=== PATIENT | male | born 1965 | race African-American/Black ===

== ENCOUNTER 2016-08-20 14:38 | Emergency (ER) | payer MEDICAID ==
[~2016-08-20] VITALS: Ht 172.7 cm; Wt 70.0 kg
[2016-08-20] MEDS ORDERED: ONDANSETRON HCL 4MG/2ML VIAL IV STA (20:04)
[2016-08-20] MEDS ORDERED: MORPHINE SULFATE 4 MG/ML CPJ (NOT FOR IM USE) IV STA (20:04)
[2016-08-20 20:14] LABS: BASOPHILS % 0.5 % (0.0-2.0); HEMATOCRIT. 36.7 % (42.0-52.0); HEMOGLOBIN. 12.7 g/dL (14.0-18.0); LYMPHOCYTES % 25.5 % (20.0-50.0); MEAN CORPUSCULAR HEMOGLOBIN 29.6 pg (28.0-32.0); MEAN CORPUSCULAR HGB CONC 34.6 g/dL (31.0-37.0); MEAN CORPUSCULAR VOLUME 85.4 fL (80.0-94.0); MEAN PLATELET VOLUME 6.8 fl (7.4-10.4); MONOCYTES % 10.1 % (2.0-8.0); NEUTROPHILS % 62.9 % (40.0-76.0); PLATELET 236 x1000/uL (130-400); RED BLOOD CELL COUNT 4.29 mill/uL (4.7-6.1); RED CELL DISTRIBUTION WIDTH 12.9 % (11.6-14.6); WHITE BLOOD COUNT 6.8 x1000/uL (4.5-11.0)
[2016-08-20 20:20] LABS: CHLORIDE 105 mEq/L (98-107); INDEX HEMOLYSI 1 (1-3); INDEX ICTERIC 1 (1-4); INDEX LIPEMIC 1 (1-3)
[2016-08-20 20:31] LABS: ALANINE AMINOTRANSFERASE 21 IU/L (13-61); ALBUMIN 3.5 g/dL (3.4-5.0); ANION GAP 12; CALCIUM 8.8 mg/dL (8.5-10.1); CARBON DIOXIDE 29 mEq/L (21-32); LIPASE 101 IU/L (73-393); UREA NITROGEN BLOOD 11 mg/dL (7-21); eGFR > 60 mL/min (>60)
[2016-08-20] MEDS ORDERED: SODIUM CHLORIDE 0.9% 1,000 ML IV ONE (21:02)
[2016-08-20] MEDS ORDERED: KETOROLAC 30MG/ML VIAL IV ONE (23:15)
[2016-08-20] MEDS ORDERED: ONDANSETRON HCL 4MG/2ML VIAL IV ONE (23:15)
[2016-08-20 23:26] LABS: CLARITY URINE CLOUDY (CLEAR); COLOR URINE YELLOW (YELLOW); GLUCOSE URINE NEGATIVE (NEGATIVE); KETONES URINE NEGATIVE (NEGATIVE); LEUKOCYTE ESTERASE URINE NEGATIVE (NEGATIVE); NITRITE URINE NEGATIVE (NEGATIVE); OCCULT BLOOD URINE NEGATIVE (NEGATIVE); PH URINE 8.5 (4.5-8.0); PROTEIN URINE NEGATIVE (NEGATIVE); SPECIFIC GRAVITY URINE 1.022 (1.005-1.030)
[2016-08-20 23:29] LABS: BACTERIA URINE NONE SEEN; CALCIUM PHOSPHATE CRYSTALS UR NONE SEEN /lpf; SQUAMOUS EPITHELIAL CELL URINE NONE SEEN /lpf (RARE/1+); WAXY CASTS URINE NONE SEEN /lpf; WBC URINE NONE SEEN /hpf (0-2); YEAST URINE NONE SEEN
[2016-08-20 23:41] VITALS: BP 128/84
[2016-08-21 00:04] LABS: *AMPHETAMINES SCREEN URINE NEGATIVE (NEGATIVE); *BARBITURATES SCREEN URINE NEGATIVE (NEGATIVE); *BENZODIAZEPINES SCREEN URINE NEGATIVE (NEGATIVE); *COCAINE SCREEN URINE NEGATIVE (NEGATIVE); CANNABINOID URINE SCREEN NEGATIVE (NEGATIVE); ECSTASY MDMA SCREEN URINE NEGATIVE (NEGATIVE); METHADONE URINE SCREEN NEGATIVE (NEGATIVE); OPIATES URINE SCREEN PRESUMTIVE POSITIVE (NEGATIVE); PHENCYCLIDINE URINE SCREEN NEGATIVE (NEGATIVE)
== END 2016-08-20 23:42 | disposition home or self-care (01) ==
LOC: ER 14:50
DX: K40.90 Unilateral inguinal hernia, without obstruction or gangrene, not specified as recurrent (principal); E11.9 Type 2 diabetes mellitus without complications; Z86.73 Personal history of transient ischemic attack (TIA), and cerebral infarction without residual deficits; I11.9 Hypertensive heart disease without heart failure; Z88.0 Allergy status to penicillin
CPT/HCPCS: 36415; 80053; 80305; 81001; 83690; 85025; 96361; 96374; 96375; 96376; 99284; J1885; J2270; J2405; Z7610; J7030

== ENCOUNTER 2016-09-09 17:22 | Emergency (ER) | payer MEDICAID ==
[~2016-09-09] VITALS: Ht 172.7 cm; Wt 70.0 kg
[2016-09-09 17:24] VITALS: BP 136/80
== END 2016-09-09 19:00 | disposition left against medical advice (07) ==
LOC: ER 17:22
DX: R10.9 Unspecified abdominal pain (principal); E11.9 Type 2 diabetes mellitus without complications; I10 Essential (primary) hypertension; Z86.73 Personal history of transient ischemic attack (TIA), and cerebral infarction without residual deficits; Z88.0 Allergy status to penicillin

== ENCOUNTER 2016-10-23 13:55 | Emergency (ER) | payer MEDICAID ==
[~2016-10-23] VITALS: Ht 172.7 cm; Wt 59.0 kg
[~2016-10-23 13:55] MED LIST: IOHEXOL-300 100 ML BOTTLE ONE; SODIUM CHLORIDE 0.9% 10ML VIAL ONE
[2016-10-23] MEDS ORDERED: MORPHINE SULFATE 4 MG/ML CPJ (NOT FOR IM USE) IV STA (14:45)
[2016-10-23] MEDS ORDERED: ONDANSETRON HCL 4MG/2ML VIAL IV STA (14:45)
[2016-10-23 15:15] LABS: PROTHROMBIN TIME 10.5 sec
[2016-10-23 15:19] LABS: BASOPHILS % 1.1 % (0.0-2.0); EOSINOPHILS % 3.9 % (0.0-5.0); HEMATOCRIT. 40.4 % (42.0-52.0); HEMOGLOBIN. 13.9 g/dL (14.0-18.0); LYMPHOCYTES % 31.4 % (20.0-50.0); MEAN CORPUSCULAR HEMOGLOBIN 29.7 pg (28.0-32.0); MEAN CORPUSCULAR VOLUME 86.4 fL (80.0-94.0); MEAN PLATELET VOLUME 7.5 fl (7.4-10.4); MONOCYTES % 9.7 % (2.0-8.0); NEUTROPHILS % 53.9 % (40.0-76.0); PLATELET 211 x1000/uL (130-400); RED BLOOD CELL COUNT 4.68 mill/uL (4.7-6.1); RED CELL DISTRIBUTION WIDTH 12.1 % (11.6-14.6)
[2016-10-23 15:20] LABS: CARBON DIOXIDE 27 mEq/L (21-32); CHLORIDE 105 mEq/L (98-107)
[2016-10-23 17:00] LABS: GLUCOSE URINE NEGATIVE (NEGATIVE); KETONES URINE NEGATIVE (NEGATIVE); LEUKOCYTE ESTERASE URINE NEGATIVE (NEGATIVE); NITRITE URINE NEGATIVE (NEGATIVE); OCCULT BLOOD URINE NEGATIVE (NEGATIVE); PH URINE 6.5 (4.5-8.0); PROTEIN URINE NEGATIVE (NEGATIVE)
[2016-10-23 17:01] LABS: CLARITY URINE CLEAR (CLEAR); COLOR URINE YELLOW (YELLOW)
[2016-10-23 17:40] VITALS: BP 121/64
== END 2016-10-23 17:53 | disposition home or self-care (01) ==
LOC: ER 14:33
DX: K40.90 Unilateral inguinal hernia, without obstruction or gangrene, not specified as recurrent (principal); E11.9 Type 2 diabetes mellitus without complications; I10 Essential (primary) hypertension; F17.210 Nicotine dependence, cigarettes, uncomplicated; I25.2 Old myocardial infarction; Z88.0 Allergy status to penicillin; Z88.5 Allergy status to narcotic agent
CPT/HCPCS: 36415; 74177; 80053; 81003; 83690; 85025; 85610; 96374; 96375; 99285; A4216; J2270; J2405; Q9967

== ENCOUNTER 2016-11-24 14:42 | Emergency (ER) | payer MEDICAID ==
[~2016-11-24] VITALS: Ht 172.7 cm; Wt 76.0 kg
[2016-11-24] MEDS ORDERED: SODIUM CHLORIDE 0.9% 1,000 ML IV ONE (15:17)
[2016-11-24] MEDS ORDERED: KETOROLAC 30MG/ML VIAL IV STA (15:17)
[2016-11-24 15:39] LABS: BASOPHILS % 0.7 % (0.0-2.0); EOSINOPHILS % 2.9 % (0.0-5.0); HEMATOCRIT. 37.5 % (42.0-52.0); HEMOGLOBIN. 13.1 g/dL (14.0-18.0); LYMPHOCYTES % 24.4 % (20.0-50.0); MEAN CORPUSCULAR HEMOGLOBIN 29.4 pg (28.0-32.0); MEAN PLATELET VOLUME 7.4 fl (7.4-10.4); MONOCYTES % 7.3 % (2.0-8.0); NEUTROPHILS % 64.7 % (40.0-76.0); PLATELET 194 x1000/uL (130-400); RED BLOOD CELL COUNT 4.46 mill/uL (4.7-6.1); RED CELL DISTRIBUTION WIDTH 12.3 % (11.6-14.6)
[2016-11-24 15:47] LABS: PROTHROMBIN TIME 10.4 sec
[2016-11-24 15:52] LABS: CARBON DIOXIDE 28 mEq/L (21-32); CHLORIDE 104 mEq/L (98-107)
[2016-11-24 18:03] VITALS: BP 121/68
== END 2016-11-24 18:05 | disposition home or self-care (01) ==
LOC: ER 15:23
DX: K40.90 Unilateral inguinal hernia, without obstruction or gangrene, not specified as recurrent (principal); I10 Essential (primary) hypertension; E11.9 Type 2 diabetes mellitus without complications; Z88.0 Allergy status to penicillin; Z88.6 Allergy status to analgesic agent
CPT/HCPCS: 36415; 74176; 80053; 85025; 85610; 96361; 96374; 99285; J1885; Z7610; J7030

== ENCOUNTER 2016-11-24 19:25 | Emergency (ER) | payer MEDICAID | END 2016-11-25 03:00 | disposition left against medical advice (07) | LOC: ER 11-25 02:48 | DX: Z53.21 Procedure and treatment not carried out due to patient leaving prior to being seen by health care provider (principal) ==

== ENCOUNTER 2017-02-22 20:41 | Emergency (ER) | payer MEDICAID ==
[~2017-02-22] VITALS: Ht 177.8 cm; Wt 77.0 kg
[2017-02-22 20:53] VITALS: BP 134/84
== END 2017-02-23 04:01 | disposition left against medical advice (07) ==
LOC: ER 20:41
DX: M54.5 Low back pain (principal); Z53.21 Procedure and treatment not carried out due to patient leaving prior to being seen by health care provider

== ENCOUNTER 2018-03-02 13:24 | Emergency (ER) | payer MEDICAID ==
[~2018-03-02] VITALS: Ht 177.8 cm; Wt 64.0 kg
[2018-03-02 15:17] VITALS: BP 112/76
== END 2018-03-02 15:26 | disposition home or self-care (01) ==
LOC: ER 13:24
DX: K40.90 Unilateral inguinal hernia, without obstruction or gangrene, not specified as recurrent (principal); I11.0 Hypertensive heart disease with heart failure; I50.9 Heart failure, unspecified; E11.9 Type 2 diabetes mellitus without complications; Z88.0 Allergy status to penicillin; Z88.6 Allergy status to analgesic agent
CPT/HCPCS: 99283

== ENCOUNTER 2019-01-19 10:47 | Inpatient (IN) | payer MEDICAID ==
[~2019-01-19] VITALS: Ht 172.7 cm; Wt 56.8 kg
[2019-01-19] MEDS ORDERED: TERA2CAP4 PO (13:25)
[2019-01-19] MEDS ORDERED: AMLO10TA80 PO (13:26)
[2019-01-19] MEDS ORDERED: OMEP20TA2 PO (13:27)
[2019-01-19] MEDS ORDERED: MONT10TA24 PO (13:28)
[2019-01-19] MEDS ORDERED: GABA-529 PO (13:29)
[2019-01-19] MEDS ORDERED: TRAM50TA3 MT (13:29)
[2019-01-19] MEDS ORDERED: BACL-141 PO (13:31)
[2019-01-19] MEDS ORDERED: DOCU250C14 GT (13:31)
[2019-01-19] MEDS ORDERED: SODIUM CHLORIDE 0.9% 1,000 ML IV ONE (14:30)
[2019-01-19 14:40] LABS: CLARITY URINE CLOUDY (CLEAR); COLOR URINE YELLOW (YELLOW); KETONES URINE NEGATIVE (NEGATIVE); LEUKOCYTE ESTERASE URINE NEGATIVE (NEGATIVE); NITRITE URINE NEGATIVE (NEGATIVE); OCCULT BLOOD URINE NEGATIVE (NEGATIVE); PH URINE 7.5 (4.5-8.0); PROTEIN URINE NEGATIVE (NEGATIVE); SPECIFIC GRAVITY URINE 1.021 (1.005-1.030)
[2019-01-19 14:42] LABS: BASOPHILS % 0.9 % (0.0-2.0); EOSINOPHILS % 4.1 % (0.0-5.0); HEMATOCRIT. 36.9 % (42.0-52.0); HEMOGLOBIN. 12.6 g/dL (14.0-18.0); LYMPHOCYTES % 23.6 % (20.0-50.0); MEAN CORPUSCULAR HEMOGLOBIN 30.4 pg (28.0-32.0); MEAN CORPUSCULAR VOLUME 88.7 fL (80.0-94.0); MEAN PLATELET VOLUME 8.5 fl (7.4-10.4); MONOCYTES % 7.4 % (2.0-8.0); PLATELET 225 x1000/uL (130-400); RED BLOOD CELL COUNT 4.16 mill/uL (4.7-6.1); RED CELL DISTRIBUTION WIDTH 15.3 % (11.6-14.6)
[2019-01-19 14:47] LABS: CHLORIDE 108 mEq/L (98-107)
[2019-01-19 14:53] LABS: *BARBITURATES SCREEN URINE NEGATIVE (NEGATIVE); *BENZODIAZEPINES SCREEN URINE NEGATIVE (NEGATIVE); *COCAINE SCREEN URINE NEGATIVE (NEGATIVE); METHADONE URINE SCREEN NEGATIVE (NEGATIVE); OPIATES URINE SCREEN NEGATIVE (NEGATIVE)
[2019-01-19 14:54] LABS: *AMPHETAMINES SCREEN URINE NEGATIVE (NEGATIVE); CANNABINOID URINE SCREEN NEGATIVE (NEGATIVE); PHENCYCLIDINE URINE SCREEN NEGATIVE (NEGATIVE)
[2019-01-19 15:13] LABS: HEPATITIS B SURFACE ANTIGEN NEGATIVE
[2019-01-19 15:43] LABS: HEPATITIS A AB IGM NEGATIVE (NEGATIVE)
[2019-01-19] MEDS ORDERED: ACETAMINOPHEN 325MG TABLET PO ONE (17:30)
[2019-01-19 20:15] VITALS: BP_SYST 97; BP_DIAS 54; BP_DIAS 57
[2019-01-19] MEDS ORDERED: IPRATROPIUM/ALBUTEROL 0.5-3(2.5)MG/3ML NEB HHN PRN (22:00)
[2019-01-19] MEDS ORDERED: ONDANSETRON HCL 4MG/2ML INJ IV PRN (22:00)
[2019-01-19] MEDS: DEXT 5%/0.45% NACL KCL 20MEQ/L 1,000 ML IV SCH (23:34)
[2019-01-20] VITALS: BP 103/56
[2019-01-20] MEDS ORDERED: ALBU18HF2 IH (00:09)
[2019-01-20] MEDS ORDERED: DOCU250C19 MT (00:09)
[2019-01-20] MEDS ORDERED: LORA10CA MT (00:09)
[2019-01-20] MEDS ORDERED: FLUT15.88 BOTHNSTRLS (00:09)
[2019-01-20] MEDS ORDERED: BECL10.6 IH (00:09)
[2019-01-20 07:00] LABS: EOSINOPHILS % 6.9 % (0.0-5.0); HEMATOCRIT. 31.2 % (42.0-52.0); HEMOGLOBIN. 10.7 g/dL (14.0-18.0); MEAN CORPUSCULAR HEMOGLOBIN 29.9 pg (28.0-32.0); MEAN CORPUSCULAR VOLUME 87.3 fL (80.0-94.0); MEAN PLATELET VOLUME 8.2 fl (7.4-10.4); MONOCYTES % 10.8 % (2.0-8.0); NEUTROPHILS % 38.3 % (40.0-76.0); PLATELET 177 x1000/uL (130-400); RED BLOOD CELL COUNT 3.57 mill/uL (4.7-6.1); RED CELL DISTRIBUTION WIDTH 15.5 % (11.6-14.6)
[2019-01-20] MEDS: DEXT 5%/0.45% NACL KCL 20MEQ/L 1,000 ML IV SCH ×2 (07:00→15:30)
[2019-01-20] MEDS: HYDROMORPHONE HCL/PF 2MG/ML CPJ IV PRN ×2 (07:04→21:35)
[2019-01-20 07:44] LABS: CHLORIDE 108 mEq/L (98-107)
[2019-01-20 08:01] VITALS: BP 116/64
[2019-01-20] MEDS ORDERED: PANTOPRAZOLE SODIUM 40 MG/VIAL IV SCH (09:00)
[2019-01-20] MEDS ORDERED: DIATR MEGLU/DIATRIZOATE SOLN 30ML PO SCH (10:15)
[2019-01-20 12:00] VITALS: BP 110/65
[2019-01-20 16:00] VITALS: BP 111/60
[2019-01-20 20:00] VITALS: BP 114/63
[2019-01-21] VITALS: BP 111/62
[2019-01-21 00:49] VITALS: BP 102/70
[2019-01-21 04:00] VITALS: BP 102/70
== END 2019-01-21 07:00 | disposition home or self-care (01) | DRG 254 ==
LOC: ER 10:47 → EDBEDREQ 18:52 → ENRESERV 19:45 → 6EST 20:17
PROVIDERS: ADMIT Internal Medicine; ATTEND Internal Medicine
DX: K40.90 Unilateral inguinal hernia, without obstruction or gangrene, not specified as recurrent (principal); E87.8 Other disorders of electrolyte and fluid balance, not elsewhere classified; I10 Essential (primary) hypertension; D72.819 Decreased white blood cell count, unspecified; F17.210 Nicotine dependence, cigarettes, uncomplicated; I25.10 Atherosclerotic heart disease of native coronary artery without angina pectoris; J45.909 Unspecified asthma, uncomplicated; Z88.0 Allergy status to penicillin; Z88.8 Allergy status to other drugs, medicaments and biological substances; Z79.899 Other long term (current) drug therapy; Z71.6 Tobacco abuse counseling; Z86.73 Personal history of transient ischemic attack (TIA), and cerebral infarction without residual deficits; I25.2 Old myocardial infarction
CPT/HCPCS: 36415; 71045; 74176; 80305; 81003; 83605; 83735; 83880; 84145; 84484; 86705; 86709; 86803; 87340; 93005; 99285; 99406; C9113; J1170; J7030; Q9963

== ENCOUNTER 2019-01-23 01:10 | Emergency (ER) | payer MEDICAID ==
[~2019-01-23] VITALS: Ht 182.9 cm; Wt 68.0 kg
[~2019-01-23 01:10] MED LIST changes: +ALBU18HF2 IH; +AMLO10TA80 PO; +BACL-141 PO; +BECL10.6 IH; +DOCU250C14 GT; +DOCU250C19 MT; +FLUT15.88 BOTHNSTRLS; +GABA-529 PO; -IOHEXOL-300 100 ML BOTTLE ONE; +LORA10CA MT; +MONT10TA24 PO; +OMEP20TA2 PO; -SODIUM CHLORIDE 0.9% 10ML VIAL ONE; +TERA2CAP4 PO; +TRAM50TA3 MT
[2019-01-23] MEDS ORDERED: SODIUM CHLORIDE 0.9% 1,000 ML IV ONE (01:35)
[2019-01-23] MEDS ORDERED: KETOROLAC 30MG/ML VIAL IV STA (01:35)
[2019-01-23 01:57] LABS: CHLORIDE 106 mEq/L (98-107)
[2019-01-23 02:07] LABS: BASOPHILS % 0.9 % (0.0-2.0); EOSINOPHILS % 3.3 % (0.0-5.0); HEMATOCRIT. 36.4 % (42.0-52.0); HEMOGLOBIN. 12.6 g/dL (14.0-18.0); LYMPHOCYTES % 30.1 % (20.0-50.0); MEAN CORPUSCULAR HEMOGLOBIN 30.3 pg (28.0-32.0); MEAN CORPUSCULAR VOLUME 87.6 fL (80.0-94.0); MEAN PLATELET VOLUME 7.9 fl (7.4-10.4); MONOCYTES % 9.1 % (2.0-8.0); NEUTROPHILS % 56.6 % (40.0-76.0); PLATELET 244 x1000/uL (130-400); RED BLOOD CELL COUNT 4.16 mill/uL (4.7-6.1)
[2019-01-23] MEDS ORDERED: IOHEXOL-300 100 ML BOTTLE ONE (03:32)
[2019-01-23 04:45] VITALS: BP 115/81
== END 2019-01-23 07:04 | disposition home or self-care (01) ==
LOC: ER 01:10
DX: K40.90 Unilateral inguinal hernia, without obstruction or gangrene, not specified as recurrent (principal); F41.9 Anxiety disorder, unspecified; J45.909 Unspecified asthma, uncomplicated; I10 Essential (primary) hypertension; I25.2 Old myocardial infarction; Z86.73 Personal history of transient ischemic attack (TIA), and cerebral infarction without residual deficits; Z79.899 Other long term (current) drug therapy; Z88.0 Allergy status to penicillin; Z88.6 Allergy status to analgesic agent
CPT/HCPCS: 36415; 74177; 80053; 83605; 83690; 85025; 96374; 99284; J1885; J7030; Q9967

== ENCOUNTER 2019-02-15 18:20 | Inpatient (IN) | payer MEDICAID ==
[~2019-02-15] VITALS: Ht 172.7 cm; Wt 61.3 kg
[2019-02-15 19:12] LABS: BASOPHILS % 0.8 % (0.0-2.0); EOSINOPHILS % 4.5 % (0.0-5.0); HEMATOCRIT. 39.1 % (42.0-52.0); HEMOGLOBIN. 13.3 g/dL (14.0-18.0); LYMPHOCYTES % 26.1 % (20.0-50.0); MEAN CORPUSCULAR HEMOGLOBIN 29.3 pg (28.0-32.0); MEAN CORPUSCULAR VOLUME 86.1 fL (80.0-94.0); MEAN PLATELET VOLUME 7.6 fl (7.4-10.4); MONOCYTES % 9.8 % (2.0-8.0); NEUTROPHILS % 58.8 % (40.0-76.0); PLATELET 209 x1000/uL (130-400); RED BLOOD CELL COUNT 4.54 mill/uL (4.7-6.1); RED CELL DISTRIBUTION WIDTH 13.2 % (11.6-14.6)
[2019-02-15 19:19] LABS: PROTHROMBIN TIME 9.9 sec (9.6-11.0)
[2019-02-15 19:20] LABS: CHLORIDE 107 mEq/L (98-107)
[2019-02-15] MEDS ORDERED: IOHEXOL-350 100 ML BOTTLE ONE (19:22)
[2019-02-15 19:24] LABS: ETHANOL BLOOD < 10 mg/dL
[2019-02-15 19:27] LABS: LDL CHOLESTEROL 104 mg/dL (5-100)
[2019-02-15] MEDS ORDERED: ASPIRIN 81MG TABLET PO ONE (20:15)
[2019-02-15 20:44] LABS: CLARITY URINE CLEAR (CLEAR); COLOR URINE YELLOW (YELLOW); KETONES URINE NEGATIVE (NEGATIVE); LEUKOCYTE ESTERASE URINE NEGATIVE (NEGATIVE); NITRITE URINE NEGATIVE (NEGATIVE); OCCULT BLOOD URINE NEGATIVE (NEGATIVE); PH URINE 6.5 (4.5-8.0); PROTEIN URINE NEGATIVE (NEGATIVE); SPECIFIC GRAVITY URINE 1.027 (1.005-1.030); UROBILINOGEN URINE 0.2 E.U./dL (0.2-1.0)
[2019-02-15 20:48] LABS: *AMPHETAMINES SCREEN URINE NEGATIVE (NEGATIVE); *BARBITURATES SCREEN URINE NEGATIVE (NEGATIVE); *BENZODIAZEPINES SCREEN URINE NEGATIVE (NEGATIVE); *COCAINE SCREEN URINE NEGATIVE (NEGATIVE)
[2019-02-15 20:49] LABS: CANNABINOID URINE SCREEN NEGATIVE (NEGATIVE); METHADONE URINE SCREEN NEGATIVE (NEGATIVE); OPIATES URINE SCREEN NEGATIVE (NEGATIVE); PHENCYCLIDINE URINE SCREEN NEGATIVE (NEGATIVE)
[2019-02-16] VITALS: BP 113/72
[2019-02-16] MEDS ORDERED: IPRATROPIUM/ALBUTEROL 0.5-3(2.5)MG/3ML NEB HHN PRN (01:00)
[2019-02-16] MEDS: TRAMADOL 50MG TABLET PO PRN ×2 (01:53→10:21)
[2019-02-16] MEDS ORDERED: ALBU18HF2 IH (02:23)
[2019-02-16] MEDS ORDERED: VENL37.55 PO (02:23)
[2019-02-16 04:00] VITALS: BP 111/64
[2019-02-16] MEDS: OMEPRAZOLE 20MG CAPSULE EXTENDED RELEASE PO SCH (06:15)
[2019-02-16 08:00] VITALS: BP 111/71
[2019-02-16 08:01] LABS: BASOPHILS % 0.8 % (0.0-2.0); EOSINOPHILS % 5.5 % (0.0-5.0); HEMATOCRIT. 35.1 % (42.0-52.0); LYMPHOCYTES % 31.3 % (20.0-50.0); MEAN CORPUSCULAR HEMOGLOBIN 29.2 pg (28.0-32.0); MEAN CORPUSCULAR VOLUME 85.1 fL (80.0-94.0); MONOCYTES % 12.8 % (2.0-8.0); NEUTROPHILS % 49.6 % (40.0-76.0); PLATELET 187 x1000/uL (130-400); RED BLOOD CELL COUNT 4.13 mill/uL (4.7-6.1); RED CELL DISTRIBUTION WIDTH 13.3 % (11.6-14.6)
[2019-02-16] MEDS: VENLAFAXINE HCL 37.5MG SR CAPSULE 24HR PO SCH ×2 (08:34→20:27)
[2019-02-16] MEDS: DOCUSATE SODIUM 250MG CAPSULE PO SCH (08:34)
[2019-02-16] MEDS: ASPIRIN 325MG EC TABLET PO SCH (08:34)
[2019-02-16 08:40] LABS: CHLORIDE 109 mEq/L (98-107)
[2019-02-16] MEDS: ENOXAPARIN 40MG/0.4ML SYR SUBCUT SCH (10:21)
[2019-02-16 12:00] VITALS: BP 114/69
[2019-02-16 16:00] VITALS: BP 105/61
[2019-02-16] MEDS: LORAZEPAM 1MG TABLET PO PRN (18:55)
[2019-02-16 20:00] VITALS: BP 90/69
[2019-02-16 20:14] LABS: T4 FREE 1.14 ng/dL (0.76-1.46)
[2019-02-16] MEDS: ATORVASTATIN CALCIUM 40MG TABLET PO SCH (20:27)
[2019-02-16] MEDS: TERAZOSIN HCL 1MG CAPSULE PO SCH (20:29)
[2019-02-17] VITALS: BP 95/55
[2019-02-17 04:00] VITALS: BP 112/69
[2019-02-17] MEDS: OMEPRAZOLE 20MG CAPSULE EXTENDED RELEASE PO SCH (06:26)
[2019-02-17 08:00] VITALS: BP_SYST 105; BP_SYST 109; BP_SYST 112; BP_DIAS 68; BP_DIAS 71; BP_DIAS 72
[2019-02-17] MEDS: ENOXAPARIN 40MG/0.4ML SYR SUBCUT SCH (08:43)
[2019-02-17] MEDS: DOCUSATE SODIUM 250MG CAPSULE PO SCH (08:43)
[2019-02-17] MEDS: ASPIRIN 325MG EC TABLET PO SCH (08:44)
[2019-02-17] MEDS: VENLAFAXINE HCL 37.5MG SR CAPSULE 24HR PO SCH ×2 (08:44→22:59)
[2019-02-17 16:00] VITALS: BP 110/68
[2019-02-17 20:00] VITALS: BP 107/61
[2019-02-17] MEDS: TERAZOSIN HCL 1MG CAPSULE PO SCH (21:00)
[2019-02-17] MEDS: TRAMADOL 50MG TABLET PO PRN (22:04)
[2019-02-17] MEDS: ATORVASTATIN CALCIUM 40MG TABLET PO SCH (23:00)
[2019-02-18] VITALS: BP 105/61
[2019-02-18 04:00] VITALS: BP 108/66
[2019-02-18] MEDS: TRAMADOL 50MG TABLET PO PRN (07:57)
[2019-02-18 08:00] VITALS: BP 118/75
[2019-02-18] MEDS: ENOXAPARIN 40MG/0.4ML SYR SUBCUT SCH (08:00)
[2019-02-18] MEDS: DOCUSATE SODIUM 250MG CAPSULE PO SCH (08:00)
[2019-02-18] MEDS: ASPIRIN 325MG EC TABLET PO SCH (08:01)
[2019-02-18] MEDS: VENLAFAXINE HCL 37.5MG SR CAPSULE 24HR PO SCH ×2 (08:01→21:35)
[2019-02-18] MEDS ORDERED: SORBITOL 70% SOLN 30ML PO NR (10:30)
[2019-02-18 12:00] VITALS: BP 115/75
[2019-02-18] MEDS ORDERED: NA PHOS,M-B/NA PHOS,DI-BA ENEMA 118ML PR SCH (12:15)
[2019-02-18] MEDS: OMEPRAZOLE 20MG CAPSULE EXTENDED RELEASE PO SCH (13:06)
[2019-02-18] MEDS: LORAZEPAM 1MG TABLET PO PRN ×2 (13:41→21:38)
[2019-02-18] MEDS: TAMSULOSIN HCL 0.4MG SR CAPSULE PO SCH ×2 (14:28→21:35)
[2019-02-18 16:00] VITALS: BP 105/60
[2019-02-18 20:00] VITALS: BP 121/71
[2019-02-18] MEDS ORDERED: TAMSULOSIN HCL 0.4MG SR CAPSULE PO SCH (21:00)
[2019-02-18] MEDS: TERAZOSIN HCL 1MG CAPSULE PO SCH (21:37)
[2019-02-18] MEDS: ATORVASTATIN CALCIUM 40MG TABLET PO SCH (21:37)
[2019-02-19] VITALS: BP 100/55
[2019-02-19 04:00] VITALS: BP 91/53
[2019-02-19 05:00] VITALS: BP 100/58
== END 2019-02-19 06:30 | disposition home or self-care (01) | DRG 47 ==
LOC: ER 18:28 → 8WST 21:42 → EDBEDREQ 21:57 → EDBEDREQTM 21:57 → ENRESERV 22:33
PROVIDERS: ADMIT Internal Medicine; ATTEND Internal Medicine
DX: G45.9 Transient cerebral ischemic attack, unspecified (principal); G91.9 Hydrocephalus, unspecified; G90.8 Other disorders of autonomic nervous system; Z86.73 Personal history of transient ischemic attack (TIA), and cerebral infarction without residual deficits; D64.9 Anemia, unspecified; J45.909 Unspecified asthma, uncomplicated; I25.10 Atherosclerotic heart disease of native coronary artery without angina pectoris; F17.210 Nicotine dependence, cigarettes, uncomplicated; N40.0 Benign prostatic hyperplasia without lower urinary tract symptoms; E78.5 Hyperlipidemia, unspecified; F41.9 Anxiety disorder, unspecified; I10 Essential (primary) hypertension; Z88.0 Allergy status to penicillin; Z88.5 Allergy status to narcotic agent; I25.2 Old myocardial infarction; Z71.6 Tobacco abuse counseling
CPT/HCPCS: 36415; 70496; 70498; 70551; 71045; 72131; 80048; 80305; 80320; 81003; 82962; 83721; 84439; 84443; 84481; 84484; 93005; 93306; 97162; 97167; 97530; 99285; J1650; Q9967; G0480